=== PATIENT | male | born 1980 | race Caucasian/White ===

== ENCOUNTER 2018-04-23 05:56 | Emergency (ER) | payer OTHER, MEDICAID ==
--- NOTE | 2018-04-23 06:25 | ER Document Report ---
ED General - General Chief Complaint: Lip Swelling Stated Complaint: SWOLLEN LIP Time Seen by Provider: 04/23/18 06:24 Notes: 37-year-old male who woke up this morning with swollen lower lip. Denies any trauma. States that he has had this happen previous occasions where he has swelling of his hands joints. This is the second or third time he has had swelling to his lips. Denies any difficulty swallowing. No shortness of breath. - HPI Onset: Just prior to arrival - Related Data Allergies/Adverse Reactions: No Known Allergies Allergy (Unverified 08/02/14 08:17) Past Medical History - General Information source: Patient - Social History Smoking Status: Never Smoker Frequency of alcohol use: None Drug Abuse: None Lives with: Family Family History: Reviewed & Not Pertinent - Past Medical History Cardiac Medical History: Reports: Hx Hypertension Psychiatric Medical History: Reports: Hx Anxiety, Hx Depression Review of Systems - Review of Systems Constitutional: No symptoms reported EENT: Mouth swelling. denies: Eye pain, Throat pain, Difficulty swallowing Cardiovascular: No symptoms reported Respiratory: No symptoms reported Gastrointestinal: No symptoms reported Genitourinary: No symptoms reported Male Genitourinary: No symptoms reported Musculoskeletal: No symptoms reported Skin: No symptoms reported Hematologic/Lymphatic: No symptoms reported Neurological/Psychological: No symptoms reported Physical Exam - Vital signs Vitals: Temp Pulse Resp BP Pulse Ox 98.2 F 70 18 132/77 H 99 04/23/18 06:01 04/23/18 06:01 04/23/18 06:01 04/23/18 06:01 04/23/18 06:01 Interpretation: Normal - General General appearance: Appears well, Alert - HEENT Head: Normocephalic, Atraumatic Eyes: Normal Pupils: PERRL Mouth/Lips: Angioedema Pharynx: Normal Neck: Normal - Respiratory Respiratory status: No respiratory distress Chest status: Nontender Breath sounds: Normal Chest palpation: Normal - Cardiovascular Rhythm: Regular Heart sounds: Normal auscultation Murmur: No - Abdominal Inspection: Normal Distension: No distension Bowel sounds: Normal Tenderness: Nontender Organomegaly: No organomegaly - Back Back: Normal, Nontender - Extremities General upper extremity: Normal inspection, Nontender, Normal color, Normal ROM , Normal temperature General lower extremity: Normal inspection, Nontender, Normal color, Normal ROM , Normal temperature, Normal weight bearing. No: Nicola's sign - Neurological Neuro grossly intact: Yes Cognition: Normal Orientation: AAOx4 Bernard Coma Scale Eye Opening: Spontaneous Fady Coma Scale Verbal: Oriented Fady Coma Scale Motor: Obeys Commands Bernard Coma Scale Total: 15 Speech: Normal Motor strength normal: LUE, RUE, LLE, RLE Sensory: Normal - Psychological Associated symptoms: Normal affect, Normal mood - Skin Skin Temperature: Warm Skin Moisture: Dry Skin Color: Normal Course - Re-evaluation Re-evalutation: 04/23/18 07:42 Patient has no respiratory distress. Vital signs are normal. Isolated lip edema. Will get basic labs, steroids, Benadryl, Pepcid and reassess. 04/23/18 08:32 Repeat evaluation performed. Lip is decreasing in size. No worsening symptoms. Laboratory 04/23/18 04/23/18 06:43 06:43 WBC 9.9 RBC 4.82 Hgb 14.3 Hct 40.2 MCV 83 MCH 29.7 MCHC 35.6 RDW 13.1 Plt Count 255 Seg Neutrophils % 61.8 Lymphocytes % 27.7 Monocytes % 6.1 Eosinophils % 3.9 Basophils % 0.5 Absolute Neutrophils 6.1 Absolute Lymphocytes 2.8 Absolute Monocytes 0.6 Absolute Eosinophils 0.4 Absolute Basophils 0.0 Sodium 142.4 Potassium 3.4 L Chloride 104 Carbon Dioxide 27 Anion Gap 11 BUN 17 Creatinine 0.69 Est GFR ( Amer) > 60 Est GFR (Non-Af Amer) > 60 Glucose 96 Calcium 9.2 - Vital Signs Vital signs: Temp Pulse Resp BP Pulse Ox 98.2 F 70 18 132/77 H 99 04/23/18 06:01 04/23/18 06:01 04/23/18 06:01 04/23/18 06:01 04/23/18 06:01 - Laboratory Result Diagrams: 04/23/18 06:43 04/23/18 06:43 Laboratory results interpreted by me: 04/23/18 06:43 Potassium 3.4 L Discharge - Discharge Clinical Impression: Angioedema Qualifiers: Encounter type: initial encounter Qualified Code(s): T78.3XXA - Angioneurotic edema, initial encounter Condition: Good Disposition: HOME, SELF-CARE Instructions: Angioedema ([facility]) Additional Instructions: Take the Benadryl, Pepcid and prednisone as prescribed. Please ask your doctor to follow-up with the laboratory studies which were obtained today. We will attempt to follow-up with you however this is an emergency department and sometimes follow-up is hard to do. In the event that you develop any worsening symptoms it will be very important that you return immediately. Prescriptions: Diphenhydramine HCl 25 mg PO TID 5 Days #15 capsule Prednisone [Deltasone 20 mg Tablet] 3 tab PO DAILY 3 Days #9 tablet Ranitidine HCl [Zantac] 150 mg PO BID 7 Days #14 tablet Forms: Return to Work Referrals: KHAI BERNABE MD [Primary Care Provider] - Follow up as needed
[2018-04-23] MEDS ORDERED: FAMOTIDINE INJ/PF 20 MG/2 ML SDV IV ONE (06:37)
[2018-04-23] MEDS ORDERED: METHYLPREDNISOLONE INJ 125 MG/2 ML SDV IV ONE (06:37)
[2018-04-23] MEDS ORDERED: DIPHENHYDRAMINE HCL 50 MG/ML VIAL IV ONE (06:37)
[2018-04-23 07:00] LABS: ABSOLUTE EOSINOPHILS # (AUTO) 0.4 10^3/uL (0.0-0.6); ABSOLUTE LYMPHOCYTES (AUTO) 2.8 10^3/uL (0.5-4.7); ABSOLUTE MONOCYTES (AUTO) 0.6 10^3/uL (0.1-1.4); ABSOLUTE NEUT (AUTO) 6.1 10^3/uL (1.7-8.2); BASOPHILS % (AUTO) 0.5 % (0-2); EOSINOPHILS % (AUTO) 3.9 % (0-6); HEMATOCRIT 40.2 % (37.9-51.0); HEMOGLOBIN 14.3 g/dL (13.5-17.0); LYMPHOCYTES % (AUTO) 27.7 % (13-45); MEAN CORPUSCULAR HEMOGLOBIN 29.7 pg (27.0-33.4); MEAN CORPUSCULAR HGB CONC 35.6 g/dL (32.0-36.0); MEAN CORPUSCULAR VOLUME 83 fl (80-97); MONOCYTES % (AUTO) 6.1 % (3-13); PLATELET COUNT 255 10^3/uL (150-450); RED BLOOD COUNT 4.82 10^6/uL (4.35-5.55); RED CELL DISTRIBUTION WIDTH 13.1 % (11.5-14.0); SEGMENTED NEUTROPHILS % (AUTO) 61.8 % (42-78); TOTAL CELLS COUNTED % (AUTO) 100 %; WHITE BLOOD COUNT 9.9 10^3/uL (4.0-10.5)
[2018-04-23 07:12] LABS: ANION GAP 11 (5-19); BLOOD UREA NITROGEN 17 mg/dL (7-20); CALCIUM 9.2 mg/dL (8.4-10.2); CARBON DIOXIDE 27 mmol/L (22-30); CHLORIDE 104 mmol/L (98-107); GLUCOSE 96 mg/dL (75-110); POTASSIUM 3.4 mmol/L (3.6-5.0); SODIUM 142.4 mmol/L (137-145)
[2018-04-23 09:52] VITALS: BP 132/84
[2018-04-25 07:38] LABS: F002-IGE MILK (COW) <0.10 kU/L (Class 0); F004-IGE WHEAT <0.10 kU/L (Class 0); F008-IGE CORN <0.10 kU/L (Class 0); F013-IGE PEANUT <0.10 kU/L (Class 0); F014-IGE SOYBEAN <0.10 kU/L (Class 0); F026-IGE PORK <0.10 kU/L (Class 0); F027-IGE BEEF <0.10 kU/L (Class 0); F245-IGE EGG WHOLE <0.10 kU/L (Class 0)
[2018-04-25 08:07] LABS: F052-IGE CHOCOLATE/COCOA <0.10 kU/L (Class 0)
== END 2018-04-23 09:51 | disposition home or self-care (01) ==
LOC: ER 05:56
DX: T78.3XXA Angioneurotic edema, initial encounter (principal); I10 Essential (primary) hypertension; X58.XXXA Exposure to other specified factors, initial encounter
CPT/HCPCS: 99283; 96374; 96375; 36415; 85025; 86160; 80048; 86003 ×33; 82785; J1200; J2930; S0028